=== PATIENT | male | born 1975 | race Two or more races ===

== ENCOUNTER 2019-11-05 10:54 | Emergency (ER) | payer SELFPAY ==
[~2019-11-05] VITALS: Ht 167.6 cm; Wt 78.5 kg
[2019-11-05 13:01] VITALS: BP 139/73
[2019-11-05] MEDS ORDERED: KETOROLAC TROMETH 60MG/2ML VIAL IM ONE (13:30)
[2019-11-05] MEDS ORDERED: methylPREDNISolone SOD SUCC 125 MG/2 ML VL IM ONE (13:30)
== END 2019-11-05 14:03 | disposition home or self-care (01) ==
LOC: ER 10:54
DX: M54.6 Pain in thoracic spine (principal); M25.512 Pain in left shoulder
CPT/HCPCS: 73030; 96372; 99284; J1885; J2930